=== PATIENT | male | born 1995 | race African-American/Black ===

== ENCOUNTER 2018-02-05 15:54 | Emergency (ER) | payer BC, OTHER ==
[2018-02-05 16:04] VITALS: BP 121/72; PULSE 85; TEMP 98.3; BMI 21.7
--- NOTE | 2018-02-05 16:04 | PDOC ---
Rapid Medical Evaluation Chief Complaint: Laceration Time Seen by Provider: 02/05/18 16:00 Medical Evaluation: 02/05/18 16:02 Pt. is a 22 y/o M who presents to the ED with a laceration to the area of his frontal scalp. Pt. states he was jumping when he hit his head on the door frame. Denies LOC, light headedness, neck pain. Does not remember the date of his last tetanus Exam: ambulatory in no acute distress. 3cm superficial lac to the scalp two inches above the forehead. Orders: boostrix Pt. to proceed to FT for further evaluation
[2018-02-05] MEDS ORDERED: LIDOCAINE 2.5%/PRILOCAINE 2.5% (5 Gram/TUBE) TP ONE ×2 (16:48→16:53)
[2018-02-05] MEDS ORDERED: DIPHTH,PERTUSS(ACELL),TET 0.5 ML DISP.SYRIN IM ONE (17:00)
--- NOTE | 2018-02-05 17:03 | PDOC ---
History of Present Illness - General Chief Complaint: Laceration Stated Complaint: HEAD LACERATION Time Seen by Provider: 02/05/18 16:00 History Source: Patient - History of Present Illness Initial Comments: 22-year-old healthy male with a past medical history significant for asthma presents for evaluation of laceration. He states while jumping at home he hit his head into a door jam. He has no loss of consciousness visual changes nausea vomiting or headache. He controlled bleeding with direct pressure. 02/05/18 16:57 Past History - Past Medical History Allergies/Adverse Reactions: Allergies Allergy/AdvReac Type Severity Reaction Status Date / Time No Known Allergies Allergy Verified 02/05/18 16:41 Home Medications: Ambulatory Orders NK [No Known Home Medication] 02/05/18 Asthma: Yes COPD: No - Suicide/Smoking/Psychosocial Hx Smoking History: Never smoked Have you smoked in the past 12 months: No Information on smoking cessation initiated: No Hx Alcohol Use: No Drug/Substance Use Hx: No Substance Use Type: None Review of Systems - Review of Systems Constitutional: Yes: See HPI All Other Systems: Reviewed and Negative *Physical Exam - Vital Signs Last Vital Signs Temp Pulse Resp BP Pulse Ox 98.3 F 85 18 121/72 100 02/05/18 16:00 02/05/18 16:00 02/05/18 16:00 02/05/18 16:00 02/05/18 16:00 - Physical Exam Comments: There is about a 4 cm laceration on anterior aspect of the scalp. The wound was explored there is no foreign body. Bleeding is present. He has a negative Romberg sign. EOMI pupils equal round and reactive. 02/05/18 16:58 Procedures - Laceration/Wound Repair Face Wound Length: 2.6 to 5.0 cm Wound Explored: clean Wound's Depth, Shape: superficial Irrigated w/ Saline: Yes Betadine Prep: Yes Wound Debrided: minimal Wound Repaired With: Angela Number of Sutures: 6 Sterile Dressing Applied: No Medical Decision Making - Medical Decision Making This is a 22-year-old male without frontal scalp laceration. He was bleeding when he entered fast-track the wound was quickly irrigated explored through bloodless field without any identified foreign body the edges were approximated and stapled with 6 interrupted angela. This was tolerated well the area was re- cleaned with soap and water. 02/05/18 17:01 *DC/Admit/Observation/Transfer Diagnosis at time of Disposition: Scalp laceration - Discharge Dispostion Disposition: HOME Condition at time of disposition: Stable Decision to Admit order: No - Referrals Referrals: Teo Shaikh MD [Staff Physician] - - Patient Instructions Printed Discharge Instructions: DI for Laceration Repair, DI for Closed Head Injury Additional Instructions: Return to the emergency room if you experience headache visual changes nausea vomiting or dizziness. He can follow-up with your primary care provider or the one I've provided for you in 2-3 days for reevaluation and treatment options. In the meantime he can return to the emergency room in 7 days for staple removal from her scalp. Keep the area clean and dry for 48 hours after that you may wash it with soap and water and leave open to air. Return to the emergency room if you develop increasing pain redness or drainage from the wound site. - Post Discharge Activity
== END 2018-02-05 17:05 | disposition home or self-care (01) ==
LOC: JERFT 15:54
PROC: 0HQ0XZZ Repair Scalp Skin, External Approach (ICD-10-PCS; principal; 2018-02-05)
DX: S01.01XA Laceration without foreign body of scalp, initial encounter (principal); W22.8XXA Striking against or struck by other objects, initial encounter; Y93.39 Activity, other involving climbing, rappelling and jumping off; Y92.038 Other place in apartment as the place of occurrence of the external cause; Y99.8 Other external cause status
CPT/HCPCS: 99281-25

== ENCOUNTER 2018-02-12 08:08 | Emergency (ER) | payer BC, OTHER ==
[2018-02-12 08:14] VITALS: BP 120/63; PULSE 77; TEMP 98.2; BMI 21.9
--- NOTE | 2018-02-12 08:45 | PDOC ---
Suture Removal/Wound Check HPI - History of Present Illness Chief Complaint: Suture/Staple Removal(Here) Stated Complaint: SUTURE/STAPLE REMOVAL (HERE) Time Seen by Provider: 02/12/18 08:40 History Source: Yes: Patient Exam Limitations: Yes: No Limitations - Previous ED Treatment Tetanus Immunization: Yes: Up to Date Antibiotics Prescribed: No - Onset of Previous Treatment Date of Occurence: 02/05/18 Past History - Travel Traveled outside of the country in the last 30 days: No - Past Medical History Allergies/Adverse Reactions: Allergies Allergy/AdvReac Type Severity Reaction Status Date / Time No Known Allergies Allergy Verified 02/12/18 08:12 Asthma: Yes COPD: No - Suicide/Smoking/Psychosocial Hx Smoking History: Never smoked Have you smoked in the past 12 months: No Hx Alcohol Use: No Drug/Substance Use Hx: No Substance Use Type: None Suture Removal/Wound Check PE - Physical Exam Laceration/Wound Check Symptoms: reports: None Current Severity Level: None Maximum Severity Level: None Location of Laceration/Wound: bilateral: Head Pain Radiation: None *Review of Systems - Review of Systems Able to Perform ROS?: Yes Constitutional: No: Chills, Fever, Weakness HEENTM: No: Double Vision, Ear Discharge, Nose Pain, Throat Pain, Throat Swelling, Mouth Pain, Difficulty Swallowing Respiratory: No: Cough, Orthopnea, Stridor, Wheezing Cardiac (ROS): No: Chest Pain, Lightheadedness ABD/GI: No: See HPI, Blood Streaked Bowels, Constipated, Nausea, Poor Appetite, Poor Fluid Intake Musculoskeletal: No: Back Pain, Muscle Pain Integumentary: No: See HPI, Erythema, Sweating Neurological: No: Headache, Numbness, Paresthesia, Tingling, Weakness Psychiatric: No: Frequent Crying, Stressors Endocrine: No: Increased Hunger Hematologic/Lymphatic: No: See HPI, Blood Clots *Physical Exam - Vital Signs Last Vital Signs Temp Pulse Resp BP Pulse Ox 98.2 F 77 18 120/63 98 02/12/18 08:12 02/12/18 08:12 02/12/18 08:12 02/12/18 08:12 02/12/18 08:12 - Physical Exam General Appearance: Yes: Nourished, Appropriately Dressed HEENT: positive: EOMI, MARTHA, TMs Normal, Pharynx Normal, Other (7 angela front scalp,wound well approximated ) Neck: positive: Supple. negative: Lymphadenopathy (R), Lymphadenopathy (L) Respiratory/Chest: positive: Lungs Clear, Normal Breath Sounds Cardiovascular: positive: Regular Rhythm, Regular Rate, S1, S2 Extremity: positive: Normal Capillary Refill Neurologic: positive: data integration developer II-XII NML intact, Fully Oriented, Motor Strength 5/5 Medical Decision Making - Medical Decision Making 02/12/18 08:49 22 year old male here for angela removal 7 angela removed from scalp *DC/Admit/Observation/Transfer Diagnosis at time of Disposition: Removal of angela - Discharge Dispostion Disposition: HOME Condition at time of disposition: Good Decision to Admit order: No - Referrals - Patient Instructions Printed Discharge Instructions: DI for Suture Removal Additional Instructions: Keep area clean and dry Do not wash your hair until 02/16/18 When you wash your hair, wash it gently. Do not shave your hair for another week Return to emergency department for drainage from wound, dizziness, nausea or vomiting - Post Discharge Activity Forms/Work/School Notes: Back to Work
== END 2018-02-12 08:50 | disposition home or self-care (01) ==
LOC: JERFT 08:08
DX: Z48.02 Encounter for removal of sutures (principal)
CPT/HCPCS: 99281-25